=== PATIENT | female | born 1995 | race Caucasian/White ===

== ENCOUNTER 2016-05-06 22:34 | Emergency (ER) | payer OTHER ==
[2016-05-06] MEDS ORDERED: NORCO 5/325 MG PO ONE (22:51)
[2016-05-06] MEDS ORDERED: Vibramycin 100 MG PO ONE (22:51)
--- NOTE | 2016-05-06 22:57 | ERPHSYRPT ---
- History of Present Illness Time Seen by Provider: 05/06/16 22:52 Source: patient Exam Limitations: no limitations Patient Subjective Stated Complaint: PT STATES SHE HAS BEEN HAVING PAIN IN HER RT LOWER JAW SINCE THIS MORNING Triage Nursing Assessment: PT ALERT AND ORIENTED. ANSWERS QUESTIONS APPROP. PT AMBULATORY WITH STEADY GAIT NOTED. RESPIRATIONS NONLABORED WITH LUNGS CTA. NO SWELLING NOTED TO RT JAW. Physician History: 20 y/o female comes to the ER with complaints of right lower jaw pain since this morning. Pt describes the pain as sharp, constant, 6/10, with radiation up the jaw and not relieved by motrin. No fever or chills. Timing/Duration: gradual onset Severity: moderate ENT Location: dental Prearrival Treatment: over the counter meds Modifying Factors: Improves With: nothing Associated Symptoms: denies symptoms Allergies/Adverse Reactions: Penicillins Allergy (Verified 05/06/16 22:45) Home Medications: Norethindrone AC-Eth Estradiol [Microgestin 21 1-20 Tablet] 1 each PO DAILY [History] Hx Tetanus, Diphtheria Vaccination/Date Given: Yes Hx Influenza Vaccination/Date Given: No Hx Pneumococcal Vaccination/Date Given: No Immunizations Up to Date: Yes - Review of Systems Constitutional: No Fever, No Chills Eyes: No Symptoms Ears, Nose, & Throat: No Symptoms, Loose Teeth Respiratory: No Cough, No Dyspnea Cardiac: No Chest Pain, No Edema, No Syncope Abdominal/Gastrointestinal: No Abdominal Pain, No Nausea, No Vomiting, No Diarrhea Genitourinary Symptoms: No Dysuria Musculoskeletal: No Back Pain, No Neck Pain Skin: No Rash Neurological: No Dizziness, No Focal Weakness, No Sensory Changes Psychological: No Symptoms Endocrine: No Symptoms All Other Systems: Reviewed and Negative - Past Medical History Pertinent Past Medical History: No - Past Surgical History Past Surgical History: No - Social History Smoking Status: Former smoker Exposure to second hand smoke: Yes Drug Use: none Patient Lives Alone: Yes - Female History Hx Last Menstrual Period: ENDED 5 DAYS AGO - Nursing Vital Signs Nursing Vital Signs: Initial Vital Signs Temperature 98.2 F Temperature Source Oral Pulse Rate 67 Respiratory Rate 18 Blood Pressure [Right Arm] 140/96 Pain Intensity 7 - Physical Exam General Appearance: no apparent distress, alert Eye Exam: bilateral eye: PERRL, EOMI Nasal Exam: normal inspection Throat Exam: pharynx normal, maxillary swelling, moist mucus membranes, No tonsillar exudate Neck Exam: supple Cardiovascular/Respiratory Exam: normal breath sounds, regular rate/rhythm Abdominal Exam: non-tender, soft Neurologic Exam: alert, oriented x 3, sensation nml, No motor deficits Skin Exam: normal color, warm, dry SpO2: 99 Oxygen Delivery: Room Air - Course Nursing assessment & vital signs reviewed: Yes Ordered Tests: Medication Summary Generic Name Dose Route Start Last Admin Trade Name Freq PRN Reason Stop Dose Admin Acetaminophen/Hydrocodone Bitart 1 tab 05/06/16 22:51 Minter 5/325 Mg PO 05/06/16 22:52 STAT ONE - Progress Progress: unchanged Progress Note: 05/06/16 22:54 Pt will be started on doxycycline and norco for pain for tooth infection - Departure Time of Disposition: 22:55 Departure Disposition: Home Clinical Impression: Tooth infection Condition: Stable Critical Care Time: No Referrals: NINI UKO [Primary Care Provider] - Instructions: Tooth Decay Additional Instructions: Follow up with your dentist to have the infected tooth extracted. Prescriptions: Hydrocodone Bit/Acetaminophen [[place] 5-325 Tablet] 1 each PO Q6H PRN PRN #15 tablet PRN Reason: Pain Doxycycline Hyclate 100 mg PO BID #19 tablet
[2016-05-06] MEDS ORDERED: Vibramycin 100 MG ONE (23:06)
[2016-05-06] MEDS ORDERED: NORCO 5/325 MG ONE (23:06)
[2016-05-06 23:18] VITALS: BP 118/70; PULSE 71; O2SAT 100
== END 2016-05-06 23:18 | disposition home or self-care (01) ==
LOC: ED 22:34
DX: K04.7 Periapical abscess without sinus (principal)
CPT/HCPCS: 99282

== ENCOUNTER 2017-09-03 15:10 | Observation (INO) | payer OTHER ==
[2017-09-03 16:54] LABS: Appearance CLEAR (CLEAR)
[2017-09-03 16:55] LABS: Bilirubin NEGATIVE (NEGATIVE); Blood NEGATIVE Ery/ul (0-5); Glucose NEGATIVE (NEGATIVE); Ketones NEGATIVE (NEGATIVE); Leukocyte Esterase NEGATIVE (NEGATIVE); Nitrite NEGATIVE (NEGATIVE); Ph 6.5 (5-6); Protein,Urine Dip NEGATIVE (Negative); Specific Gravity 1.015 (1.005-1.025); Urobilinogen NORMAL mg/dL (0-1)
[2017-09-03 17:16] LABS: BASOPHIL % 0.2 % (0.0-0.4); Basophil (Absolute #) 0.02 (0-0.4); Eosinophil (Absolute #) 0.25 (0-0.5); Granulocytes % 77.8 % (36.0-66.0); Hematocrit 34.9 % (35-47); Hemoglobin 11.5 gm/dl (12.0-16.0); Lymphocyte (Absolute #) 1.87 (1.0-4.6); Lymphocytes % 15.3 % (24.0-44.0); Mean Cell Volume 81.7 fl (78-100); Mean Corpuscular Hemoglobin 26.9 pg (26-32); Monocyte (Absolute #) 0.58 (0.0-1.3); Monocytes % 4.7 % (0.0-12.0); Platelet Count 184 K/mm3 (150-450); Red Blood Count 4.27 M/mm3 (4.1-5.4); Red Cell Distribution Width 15.6 % (11.5-14.0); White Blood Count 12.2 K/mm3 (4.0-10.5)
[2017-09-03 17:45] LABS: ALBUMIN 3.4 g/dL (3.5-5.0); ALKALINE PHOSPHATASE 131 U/L (38-126); ANION GAP 12.4 MEQ/L (5-15); BLOOD UREA NITROGEN 5 mg/dL (7-17); CHLORIDE 106 mmol/L (98-107); Carbon Dioxide 22 mmol/L (22-30); Creatinine 1 0.48 mg/dL (0.52-1.04); Glucose 120 mg/dL (74-106); Potassium 3.9 mmol/L (3.5-5.1); SGOT/AST 17 U/L (14-36); SGPT/ALT 16 U/L (0-35); SODIUM 137 mmol/L (137-145); Total Protein 6.4 g/dL (6.3-8.2); Uric Acid 3.6 mg/dL (2.6-6.0)
[2017-09-03 17:55] VITALS: BP 130/69; PULSE 83
== END 2017-09-03 18:05 | disposition home or self-care (01) ==
LOC: UNDOADMOB 15:10 → OB 15:10 → UNDODISOB 18:05
PROVIDERS: ADMIT Family Medicine; ATTEND Family Medicine
DX: Z34.03 Encounter for supervision of normal first pregnancy, third trimester (principal)
CPT/HCPCS: 36415; 80053; 81002; 84550; 85025; G0378

== ENCOUNTER 2017-09-19 08:25 | Inpatient (IN) | payer OTHER ==
[2017-09-19 12:48] LABS: Amphetamine,Urine NEGATIVE (NEGATIVE); Barbiturate,Urine NEGATIVE (NEGATIVE); Benzodiazepine,Urine NEGATIVE (NEGATIVE); Cocaine,Urine NEGATIVE (NEGATIVE); Methadone,Urine NEGATIVE (NEGATIVE); Opiate,Urine NEGATIVE (NEGATIVE); PCP,Urine NEGATIVE (NEGATIVE); THC,Urine NEGATIVE (NEGATIVE)
[2017-09-19] MEDS ORDERED: TYLENOL 325 MG PO PRN (19:35)
[2017-09-20] MEDS ORDERED: BRETHINE 1 MG/ML SQ PRN (02:11)
[2017-09-20] MEDS ORDERED: Zofran 4 MG/2 ML VIAL IV PRN (02:21)
[2017-09-20] MEDS ORDERED: TYLENOL EXTRA STRENGTH 500 MG PO PRN (02:21)
[2017-09-20] MEDS ORDERED: PITOCIN 30 UNITS/ LR 500 ML 500 ML IV SCH ×2 (02:30)
[2017-09-20 02:35] LABS: BASOPHIL % 0.2 % (0.0-0.4); Basophil (Absolute #) 0.02 (0-0.4); Eosinophil % 1.5 % (0.00-5.0); Eosinophil (Absolute #) 0.19 (0-0.5); Granulocyte Absolute (ANC) 9.81 (1.4-6.9); Granulocytes % 76.1 % (36.0-66.0); Hematocrit 35.3 % (35-47); Hemoglobin 11.7 gm/dl (12.0-16.0); Lymphocyte (Absolute #) 2.07 (1.0-4.6); Lymphocytes % 16.1 % (24.0-44.0); Mean Cell Volume 82.1 fl (78-100); Mean Corpuscular Hemoglobin 27.2 pg (26-32); Mean Corpuscular Hgb Concent. 33.1 g/dl (32-36); Mean Platelet Volume 11.2 fl (6-9.5); Monocyte (Absolute #) 0.78 (0.0-1.3); Monocytes % 6.1 % (0.0-12.0); Platelet Count 174 K/mm3 (150-450); Red Cell Distribution Width 16.5 % (11.5-14.0); White Blood Count 12.9 K/mm3 (4.0-10.5)
[2017-09-20] MEDS: Lactated Ringers 1,000 ML IV SCH ×3 (02:43→22:30)
[2017-09-20] MEDS ORDERED: Zofran 4 MG/2 ML VIAL IV ONE (09:24)
[2017-09-20] MEDS ORDERED: Decadron 4 MG INJ IV ONE (09:24)
[2017-09-20] MEDS ORDERED: Ephedrine Sulfate 50 MG/ML IV ONE (09:24)
[2017-09-20] MEDS ORDERED: Naropin 0.5% 30 ML VIAL IJ ONE (09:24)
[2017-09-20] MEDS ORDERED: OB EPIDURAL NAROPIN/SUFENTANIL IN NACL EPIDURAL PRN (10:32)
[2017-09-20] MEDS ORDERED: Lactated Ringers 1,000 ML IV ONE ×2 (10:32→21:21)
[2017-09-20] MEDS ORDERED: HOLD NARCOTIC ANALGESICS AND SEDATIVES X24 HR MC PRN (20:05)
[2017-09-20] MEDS ORDERED: MORPHINE SULFATE 2 MG INJ IV PRN (20:05)
[2017-09-20] MEDS ORDERED: Narcan 0.4 MG/ML IV PRN (20:05)
[2017-09-20] MEDS ORDERED: Sodium Chloride 0.9% 10 ML FLUSH Syringe IJ PRN (20:05)
[2017-09-20] MEDS ORDERED: TUCKS TP PRN (20:05)
[2017-09-20] MEDS ORDERED: Mylicon 80MG PO PRN (20:05)
[2017-09-20] MEDS ORDERED: BENADRYL 50 MG/ML IV PRN (20:05)
[2017-09-20] MEDS ORDERED: CORTISONE 1% CREAM TP PRN (20:05)
[2017-09-20] MEDS ORDERED: LANSINOH 40 GM TOP PRN (20:05)
[2017-09-20] MEDS ORDERED: CLARITIN 10 MG PO PRN (20:05)
[2017-09-20] MEDS ORDERED: Nubain 10 MG/ML IV PRN (20:05)
[2017-09-20] MEDS ORDERED: DEMEROL 50 MG IV PRN (20:05)
[2017-09-20] MEDS ORDERED: Reglan 10 MG/2 ML IV SCH (20:15)
[2017-09-20] MEDS ORDERED: Pepcid 20 MG VIAL IV SCH (20:15)
[2017-09-20] MEDS ORDERED: BICITRA 30 ML CUP PO SCH (20:15)
[2017-09-20] MEDS ORDERED: CLINDAMYCIN-D5W 900 MG/50 ML*** 900 MG/50 ML BAG IV SCH (20:30)
[2017-09-20 20:50] LABS: Hematocrit 35.7 % (35-47); Hemoglobin 11.8 gm/dl (12.0-16.0); Mean Cell Volume 82.3 fl (78-100); Mean Corpuscular Hgb Concent. 33.1 g/dl (32-36); Mean Platelet Volume 11.1 fl (6-9.5); Platelet Count 190 K/mm3 (150-450); Red Blood Count 4.34 M/mm3 (4.1-5.4); Red Cell Distribution Width 16.4 % (11.5-14.0); White Blood Count 15.7 K/mm3 (4.0-10.5)
[2017-09-20 20:52] LABS: Mean Corpuscular Hemoglobin 27.1 pg (26-32)
[2017-09-20 21:18] LABS: INR 0.99 (0.8-3.0)
[2017-09-20 21:52] LABS: ABO TYPING A; Antibody Screen NEGATIVE (NEGATIVE); RH TYPING NEGATIVE
[2017-09-21] MEDS: Colace 100 MG PO SCH ×3 (02:56→20:54)
[2017-09-21] MEDS: PERCOCET TABLET 5/325MG PO PRN ×3 (05:01→14:58)
[2017-09-21 06:16] LABS: BASOPHIL % 0.1 % (0.0-0.4); Basophil (Absolute #) 0.01 (0-0.4); Eosinophil (Absolute #) 0 (0-0.5); Granulocyte Absolute (ANC) 17.48 (1.4-6.9); Granulocytes % 91.5 % (36.0-66.0); Hematocrit 32.5 % (35-47); Hemoglobin 10.7 gm/dl (12.0-16.0); Lymphocytes % 4.7 % (24.0-44.0); Mean Cell Volume 82.1 fl (78-100); Mean Corpuscular Hgb Concent. 32.9 g/dl (32-36); Mean Platelet Volume 10.7 fl (6-9.5); Monocyte (Absolute #) 0.71 (0.0-1.3); Monocytes % 3.7 % (0.0-12.0); Platelet Count 165 K/mm3 (150-450); Red Blood Count 3.96 M/mm3 (4.1-5.4); Red Cell Distribution Width 15.9 % (11.5-14.0); White Blood Count 19.1 K/mm3 (4.0-10.5)
--- NOTE | 2017-09-21 08:02 | OP ---
SURGERY DATE/TIME: 09/20/20172044 PREOPERATIVE DIAGNOSIS: Failure to progress in labor. POSTOPERATIVE DIAGNOSIS: Failure to progress in labor. PROCEDURE: Primary low transverse section. SURGEON: Kyaw Giang M.D. ANESTHESIA: Epidural by Vladimir Felix CRNA. ESTIMATED BLOOD LOSS: 400 cc. URINE OUTPUT: 50 cc clear straw-colored urine. IV FLUIDS: 1500 cc of Crystalloid. SPECIMEN: Placenta. DESCRIPTION OF PROCEDURE: After informed written consent was obtained the patient was taken to the OR. She had a previously placed laboring epidural dosed prior to coming back to the OR. She was prepped in the usual sterile fashion. After adequate level of anesthesia was assessed, a low transverse skin incision was made by knife and carried down through the subcutaneous fat to the level of the fascia. The fascia was nicked on both sides of the midline and extended in horizontal fashion using curved Black scissors. Superior free edge of the fascia was then grasped with Ross clamps and the underlying rectus muscles were dissected free. The same was repeated inferiorly. The peritoneal cavity was opened and a bladder flap was created and reflected over the lower uterine segment. Horizontal uterine incision was made by knife and carried down to the amniotic membranes which were carefully artificially ruptured. A viable male infant with significant caput and what appeared to be macrosomia were delivered from the vertex presentation with strong cry. Bulb suction was used for oropharynx and nares. The cord was clamped and cut. Then Dr. Artis robed/scrubbed to attend to the baby. The placenta was manually removed from the uterus and the uterus was exteriorized. The uterine cavity was sponge curetted with lap sponge. The uterine incision is then closed with #1 chromic in a running locked fashion. Two layers were used to provide good closure and good hemostasis. The posterior cul-de-sac was wiped free of blood and clot and the uterus was returned to the peritoneal cavity. Lateral gutters were wiped free of blood and clot. Again, the uterine incision was inspected and noted to be hemostatic. Next, the fascia was closed with 0 Vicryl in a running fashion. Good closure and good hemostasis were achieved. The subcutaneous fat was then irrigated with warm, sterile saline and any areas of bleeding were cauterized with electrocautery. Finally the skin layer was then closed with 4-0 undyed Vicryl in a running subcuticular fashion. Steri-Strips and occlusive dressing were placed over the incision and the patient was transferred to the recovery room in excellent condition.
[2017-09-21 08:32] VITALS: O2SAT 98
[2017-09-21] MEDS: MOTRIN 400 MG PO PRN ×3 (08:40→23:57)
[2017-09-21] MEDS ORDERED: FERREX 150 PO SCH (10:00)
[2017-09-21] MEDS: NORCO 5/325 MG PO PRN (21:00)
[2017-09-22] MEDS: NORCO 5/325 MG PO PRN ×2 (02:11→22:40)
[2017-09-22 09:28] LABS: BASOPHIL % 0.2 % (0.0-0.4); Basophil (Absolute #) 0.02 (0-0.4); Eosinophil % 1.3 % (0.00-5.0); Eosinophil (Absolute #) 0.14 (0-0.5); Granulocyte Absolute (ANC) 8.63 (1.4-6.9); Granulocytes % 78.6 % (36.0-66.0); Lymphocyte (Absolute #) 1.56 (1.0-4.6); Lymphocytes % 14.2 % (24.0-44.0); Mean Cell Volume 84.7 fl (78-100); Mean Corpuscular Hemoglobin 27.3 pg (26-32); Mean Corpuscular Hgb Concent. 32.3 g/dl (32-36); Mean Platelet Volume 10.9 fl (6-9.5); Monocyte (Absolute #) 0.62 (0.0-1.3); Monocytes % 5.7 % (0.0-12.0); Platelet Count 145 K/mm3 (150-450); Red Blood Count 3.66 M/mm3 (4.1-5.4); Red Cell Distribution Width 16.8 % (11.5-14.0)
[2017-09-22] MEDS: Colace 100 MG PO SCH ×2 (09:58→19:30)
[2017-09-22] MEDS: MOTRIN 400 MG PO PRN (09:58)
--- NOTE | 2017-09-22 10:00 | PCM.DS ---
Discharge Summary Date of Admission: 09/20/17 08:25 Admitting Physician: LARRY GOEL Consults: Consults on Case 09/20/17 20:06 Notify Anesthesia Provider Notify Physician OF ADMISSION Primary Care Provider: LARRY GOEL Allergies Allergies Penicillins Allergy (Verified 09/19/17 12:07) Hospital Summary - Hospital Course Hospital Course: Pt came in for induction of labor at 39w 1d due to being at term and concern for macrosomia. Balloon catheter was placed in the uterus and 12h later she was started on pitocin. THroughout that morning she had scattered late and variable decelerations but good variability. Late in the morning the pitocin was turned off and she did progress to 7 cm but remained static for 4 hours. At that point it was decided to go to . She delivered a 9 lb male uneventfully by with Dr. Giang (for full details, see his operative note). She has recovered well. Did have elevated WBC count to 19,000 the day after delivery; this morning it is 11,000. Her platelets this morning are 145 but will check those again in 3 days (on Monday). Home on [place] . - Vitals & Intake/Output Vital Signs: Vital Signs Temperature 97.6 F 09/22/17 03:30 Pulse Rate 96 H 09/22/17 03:30 Respiratory Rate 18 09/22/17 03:30 Blood Pressure 123/60 09/22/17 03:30 O2 Sat by Pulse Oximetry 98 09/21/17 08:00 Intake & Output: Intake & Output 09/19/17 09/20/17 09/21/17 09/22/17 11:59 11:59 11:59 11:59 Output Total 1600 Balance -1600 Weight 108.819 kg 108.819 kg - Lab Result Diagrams: 09/22/17 09:22 Lab Results-Last 24 Hrs: Lab Results-Last 24 Hours 09/22/17 Range/Units 09:22 WBC 11.0 H (4.0-10.5) K/mm3 RBC 3.66 L (4.1-5.4) M/mm3 Hgb 10.0 L (12.0-16.0) gm/dl Hct 31.0 L (35-47) % MCV 84.7 (78-100) fl MCH 27.3 (26-32) pg MCHC 32.3 (32-36) g/dl RDW 16.8 H (11.5-14.0) % Plt Count 145 L (150-450) K/mm3 MPV 10.9 H (6-9.5) fl Gran % 78.6 H (36.0-66.0) % Eos # (Auto) 0.14 (0-0.5) Absolute Lymphs (auto) 1.56 (1.0-4.6) Absolute Monos (auto) 0.62 (0.0-1.3) Lymphocytes % 14.2 L (24.0-44.0) % Monocytes % 5.7 (0.0-12.0) % Eosinophils % 1.3 (0.00-5.0) % Basophils % 0.2 (0.0-0.4) % Absolute Granulocytes 8.63 H (1.4-6.9) Basophils # 0.02 (0-0.4) Discharge Exam General Appearance: no apparent distress, alert Neurologic Exam: oriented x 3, cooperative Skin Exam: normal color, warm, dry, No rash Ears, Nose, Throat Exam: moist mucous membranes Neck Exam: normal inspection Respiratory Exam: normal breath sounds, lungs clear, No crackles/rales, No rhonchi, No wheezing Cardiovascular Exam: regular rate/rhythm, normal heart sounds, murmur Gastrointestinal/Abdomen Exam: soft, other (fundus firm under umbilicus; mildly ttp. wound c/d/i) Extremity Exam: normal inspection, pedal edema (trace bilat), No swelling Back Exam: normal inspection, No rash Final Diagnosis/Problem List - Final Discharge Diagnosis/Problem (1) delivery delivered Current Visit: Yes Status: Acute Assessment & Plan: Doing great, POD #2, home tonight at 48 hours. Her platelets are low, but BP have been great. (2) Thrombocytopenia Current Visit: Yes Status: Acute Assessment & Plan: recheck CBC in 3d (on Monday) - Discharge Disposition: Home, Self-Care Condition: Good Prescriptions: New Docusate Sodium 100 mg [Colace 100 MG] 100 mg PO BID PRN #30 capsule PRN Reason: Constipation Ibuprofen 800 mg PO TID PRN PRN #35 tablet PRN Reason: Pain Hydrocodone Bit/Acetaminophen [[place] 5-325 Tablet] 1 each PO Q4H PRN #30 tablet MDD 6 PRN Reason: Severe Pain Continue Vits W-Ca,Fe,FA(<1Mg) [] 1 tablet PO DAILY Follow up with: LARRY GOEL [Primary Care Provider] - 1 Week
[2017-09-22 20:30] VITALS: BP 119/60; PULSE 110
== END 2017-09-22 22:48 | disposition home or self-care (01) | DRG 766 ==
LOC: OB 08:25 → OBSVTOIN 09-20 08:25
PROVIDERS: ADMIT Family Medicine; ATTEND Family Medicine
PROC: 10D00Z1 Extraction of Products of Conception, Low, Open Approach (ICD-10-PCS; principal; 2017-09-20)
DX: O61.0 Failed medical induction of labor (principal); Z3A.39 39 weeks gestation of pregnancy; Z37.0 Single live birth; D47.3 Essential (hemorrhagic) thrombocythemia
CPT/HCPCS: 36415; 64488; 76937; 76942; 80307; 85025; 85027; 85610; 85730; 86850; 86900; 86901; 88307; 94799; G0378; J1100; J2405; J2590; J2795; L0625; A9270-GY

== ENCOUNTER 2021-06-16 17:50 | Observation (INO) | payer OTHER ==
[2021-06-16] MEDS ORDERED: Lactated Ringers 1,000 ML IV ONE ×2 (18:00→18:22)
[2021-06-16 18:37] LABS: Appearance SLIGHTLY CLOUDY (CLEAR); Bacteria RARE /HPF (NEGATIVE); Bilirubin SMALL (NEGATIVE); Blood NEGATIVE Ery/ul (0-5); Epithelial Cells RARE /HPF (FEW); Glucose NEGATIVE (NEGATIVE); Ketones SMALL (NEGATIVE); Leukocyte Esterase NEGATIVE (NEGATIVE); Mucus SLIGHT /HPF (NEGATIVE); Nitrite NEGATIVE (NEGATIVE); Protein,Urine Dip 100 (Negative); RBC 0-2 /HPF (0-2); Specific Gravity 1.024 (1.005-1.025); Urobilinogen 2 mg/dL (0-1)
[2021-06-16] MEDS ORDERED: Zofran 4 MG/2 ML VIAL IV ONE (20:19)
[2021-06-16] MEDS ORDERED: Zofran 4 MG/2 ML VIAL ONE (20:22)
[2021-06-16 20:23] LABS: Hematocrit 38.4 % (35-47); Hemoglobin 12.3 gm/dl (12.0-16.0); Mean Corpuscular Hemoglobin 26.9 pg (26-32); Mean Platelet Volume 10.5 fl (7.5-11.0); Platelet Count 170 K/mm3 (150-450); Red Blood Count 4.57 M/mm3 (4.1-5.4); Red Cell Distribution Width 16.4 % (11.5-14.0); White Blood Count 11.9 K/mm3 (4.0-10.5)
[2021-06-16 20:35] LABS: ALBUMIN 3.5 g/dL (3.5-5.0); ALKALINE PHOSPHATASE 154 U/L (38-126); ANION GAP 13.4 MEQ/L (5-15); BLOOD UREA NITROGEN 6 mg/dL (7-17); CHLORIDE 104 mmol/L (98-107); Calcium 8.6 mg/dL (8.4-10.2); Carbon Dioxide 19 mmol/L (22-30); Creatinine 1 0.39 mg/dL (0.52-1.04); EST GLOMERULAR FILTRATION RATE > 60.0 ML/MIN; Glucose 71 mg/dL (74-106); Potassium 3.8 mmol/L (3.5-5.1); SGOT/AST 17 U/L (14-36); SGPT/ALT 10 U/L (0-35); SODIUM 134 mmol/L (137-145); Total Protein 6.3 g/dL (6.3-8.2)
[2021-06-16 20:46] LABS: COVID AG -BINAX NOW RAPID TEST NEGATIVE (NEGATIVE)
[2021-06-16 20:47] LABS: INFLUENZA A NEGATIVE (NEGATIVE); INFLUENZA B NEGATIVE (NEGATIVE)
[2021-06-16 22:17] VITALS: BP 119/70; PULSE 104
== END 2021-06-16 22:00 | disposition home or self-care (01) ==
LOC: MED SURG 17:50
PROVIDERS: ADMIT Obstetrics & Gynecology; ATTEND Obstetrics & Gynecology
DX: Z34.83 Encounter for supervision of other normal pregnancy, third trimester (principal); Z3A.38 38 weeks gestation of pregnancy
CPT/HCPCS: 36415; 80053; 81001; 84550; 85027; 87400; 99000; G0378; J2405

== ENCOUNTER 2021-06-21 16:34 | Observation (INO) | payer OTHER ==
[2021-06-21 17:06] VITALS: BP 124/68; PULSE 94
== END 2021-06-21 17:35 | disposition home or self-care (01) ==
LOC: OB 16:34
PROVIDERS: ADMIT Family Medicine; ATTEND Obstetrics & Gynecology
DX: Z34.83 Encounter for supervision of other normal pregnancy, third trimester (principal); Z3A.39 39 weeks gestation of pregnancy
CPT/HCPCS: 59025; G0378

== ENCOUNTER 2021-06-23 04:14 | Inpatient (IN) | payer OTHER ==
[~2021-06-23 04:14] MED LIST: Anucort-HC SUPPOSITORY PR PRN; CORTISONE 1% CREAM TP PRN; Colace 100 MG PO SCH; Dermoplast Spray TP PRN; Dulcolax 10 MG SUPP PR PRN; LANSINOH 40 GM TOP PRN; MOTRIN 400 MG PO PRN; Mylicon 80MG PO PRN; TUCKS TP PRN
[2021-06-23] MEDS ORDERED: Lactated Ringers 1,000 ML IV ONE ×2 (05:00→06:00)
[2021-06-23] MEDS ORDERED: CLINDAMYCIN-D5W 900 MG/50 ML*** 900 MG/50 ML BAG IV SCH ×2 (05:00→07:00)
[2021-06-23] MEDS ORDERED: PERCOCET TABLET 5/325MG PO PRN ×2 (05:00→10:00)
[2021-06-23] MEDS ORDERED: TYLENOL EXTRA STRENGTH 500 MG PO PRN (05:00)
[2021-06-23] MEDS ORDERED: Nubain 10 MG/ML IV PRN ×2 (05:00→10:00)
[2021-06-23] MEDS ORDERED: Reglan 10 MG/2 ML IV SCH ×2 (05:00→07:00)
[2021-06-23] MEDS ORDERED: DEMEROL 50 MG IV PRN ×2 (05:00→10:00)
[2021-06-23] MEDS ORDERED: BENADRYL 50 MG/ML IV PRN ×2 (05:00→10:00)
[2021-06-23] MEDS ORDERED: Dextrose 5%-Lr IV Solution 1000 ML 1,000 ML IV SCH ×2 (05:00→10:00)
[2021-06-23] MEDS ORDERED: Lactated Ringers 1,000 ML IV SCH ×2 (05:00→07:00)
[2021-06-23] MEDS ORDERED: CLARITIN 10 MG PO PRN ×2 (05:00→10:00)
[2021-06-23] MEDS ORDERED: Narcan 0.4 MG/ML IV PRN ×2 (05:00→10:00)
[2021-06-23] MEDS ORDERED: MORPHINE SULFATE 2 MG INJ IV PRN ×2 (05:00→10:00)
[2021-06-23] MEDS ORDERED: Sodium Chloride 0.9% 10 ML FLUSH Syringe IJ PRN (05:00)
[2021-06-23] MEDS ORDERED: Zofran 4 MG/2 ML VIAL IV PRN ×2 (05:00→10:00)
[2021-06-23] MEDS ORDERED: SOD CITRATE-CITRIC ACID SOLN PO SCH ×2 (05:00→07:00)
[2021-06-23] MEDS ORDERED: HOLD NARCOTIC ANALGESICS AND SEDATIVES X24 HR MC PRN ×2 (05:00→08:00)
[2021-06-23] MEDS ORDERED: Pepcid 20 MG VIAL IV SCH ×2 (05:00→07:00)
[2021-06-23 05:14] LABS: Hematocrit 34.6 % (35-47); Hemoglobin 11.3 gm/dl (12.0-16.0); Mean Cell Volume 83.6 fl (78-100); Mean Corpuscular Hemoglobin 27.3 pg (26-32); Mean Corpuscular Hgb Concent. 32.7 g/dl (32-36); Mean Platelet Volume 10.3 fl (7.5-11.0); Platelet Count 180 K/mm3 (150-450); Red Blood Count 4.14 M/mm3 (4.1-5.4); Red Cell Distribution Width 15.8 % (11.5-14.0); White Blood Count 11.7 K/mm3 (4.0-10.5)
[2021-06-23 05:30] LABS: INR 0.96 (0.8-3.0); PROTIME 11.3 SECONDS (9.4-12.5)
[2021-06-23 05:32] LABS: PTT 29.3 SECONDS (25.1-36.5)
[2021-06-23 05:35] LABS: Amphetamine,Urine NEGATIVE (NEGATIVE); Barbiturate,Urine NEGATIVE (NEGATIVE); Benzodiazepine,Urine NEGATIVE (NEGATIVE); Cocaine,Urine NEGATIVE (NEGATIVE); Methadone,Urine NEGATIVE (NEGATIVE); Opiate,Urine NEGATIVE (NEGATIVE); PCP,Urine NEGATIVE (NEGATIVE); THC,Urine NEGATIVE (NEGATIVE)
[2021-06-23 05:59] LABS: Appearance CLEAR (CLEAR); Bilirubin NEGATIVE (NEGATIVE); Blood NEGATIVE Ery/ul (0-5); Glucose NEGATIVE (NEGATIVE); Ketones NEGATIVE (NEGATIVE); Leukocyte Esterase NEGATIVE (NEGATIVE); Mucus SLIGHT /HPF (NEGATIVE); Nitrite NEGATIVE (NEGATIVE); Protein,Urine Dip NEGATIVE (Negative); Specific Gravity 1.014 (1.005-1.025); Urobilinogen NEGATIVE mg/dL (0-1)
[2021-06-23] MEDS ORDERED: Pitocin 10 UNITS/ML ONE (06:33)
[2021-06-23] MEDS ORDERED: PHENYLEPHRINE HCL ONE (06:42)
[2021-06-23] MEDS ORDERED: Astramorph-Pf 5 MG/10 ML ONE (06:58)
[2021-06-23] MEDS ORDERED: Zofran 4 MG/2 ML VIAL ONE (09:21)
[2021-06-23] MEDS ORDERED: Decadron 4 MG INJ ONE ×2 (09:39→09:49)
[2021-06-23] MEDS ORDERED: Marcaine 0.5%/Epinephrine 10 ML ONE (09:39)
[2021-06-23] MEDS ORDERED: Ephedrine Sulfate 50 MG/ML ONE (09:42)
[2021-06-23] MEDS ORDERED: TORAdol 30 mg Injection ONE (09:42)
[2021-06-23] MEDS ORDERED: Anucort-HC SUPPOSITORY PR PRN (10:00)
[2021-06-23] MEDS ORDERED: LANSINOH 40 GM TOP PRN (10:00)
[2021-06-23] MEDS ORDERED: FERREX 150 PO SCH (10:00)
[2021-06-23] MEDS ORDERED: CORTISONE 1% CREAM TP PRN (10:00)
[2021-06-23] MEDS ORDERED: Dermoplast Spray TP PRN (10:00)
[2021-06-23] MEDS ORDERED: TUCKS TP PRN (10:00)
[2021-06-23] MEDS ORDERED: Dulcolax 10 MG SUPP PR PRN (10:00)
[2021-06-23] MEDS ORDERED: Rhogam Plus 300 MCG IM ONE (12:00)
[2021-06-23] MEDS ORDERED: Adacel Vial IM ONE (12:00)
[2021-06-23] MEDS: Dextrose 5%-Lr IV Solution 1000 ML 1,000 ML IV SCH ×2 (13:33→21:29)
[2021-06-23 14:02] LABS: Appearance CLEAR (CLEAR); Bilirubin NEGATIVE (NEGATIVE); Blood NEGATIVE Ery/ul (0-5); Glucose NEGATIVE (NEGATIVE); Ketones NEGATIVE (NEGATIVE); Leukocyte Esterase NEGATIVE (NEGATIVE); Mucus SLIGHT /HPF (NEGATIVE); Nitrite NEGATIVE (NEGATIVE); Protein,Urine Dip NEGATIVE (Negative); Specific Gravity 1.016 (1.005-1.025); Urobilinogen NEGATIVE mg/dL (0-1); WBC 0-2 /HPF (0-5)
[2021-06-23] MEDS: CLINDAMYCIN-D5W 900 MG/50 ML*** 900 MG/50 ML BAG IV SCH ×2 (15:25→23:08)
[2021-06-23] MEDS: Colace 100 MG PO SCH (21:28)
[2021-06-23] MEDS: Sodium Chloride 0.9% 10 ML FLUSH Syringe IV SCH (21:29)
[2021-06-24] MEDS: MOTRIN 400 MG PO PRN ×3 (01:13→21:05)
[2021-06-24] MEDS: Mylicon 80MG PO PRN (01:17)
[2021-06-24] MEDS: Dextrose 5%-Lr IV Solution 1000 ML 1,000 ML IV SCH (02:12)
[2021-06-24 05:18] LABS: Absolute Neutrophil Ct (ANC) 10.08 (1.4-6.9); Basophil (Absolute #) 0.02 (0-0.4); Eosinophil % 0.4 % (0.00-5.0); Eosinophil (Absolute #) 0.06 (0-0.5); Hematocrit 31.7 % (35-47); Hemoglobin 10.2 gm/dl (12.0-16.0); Lymphocytes % 18.6 % (24.0-44.0); Mean Cell Volume 85.4 fl (78-100); Mean Corpuscular Hemoglobin 27.5 pg (26-32); Mean Corpuscular Hgb Concent. 32.2 g/dl (32-36); Mean Platelet Volume 10.7 fl (7.5-11.0); Monocyte (Absolute #) 0.81 (0.0-1.3); Neutrophil % 74.9 % (36.0-66.0); Platelet Count 194 K/mm3 (150-450); Red Blood Count 3.71 M/mm3 (4.1-5.4); Red Cell Distribution Width 15.9 % (11.5-14.0); White Blood Count 13.5 K/mm3 (4.0-10.5)
[2021-06-24] MEDS ORDERED: NORCO 5/325 MG PO PRN (07:00)
[2021-06-24] MEDS ORDERED: NON-FORMULARY ITEM (Omeprazole [Omeprazole] 20 MG Tab.Rap.Dr) PO PRN (07:32)
[2021-06-24] MEDS ORDERED: Protonix 40MG Tablet PO PRN (07:34)
--- NOTE | 2021-06-24 07:49 | OP ---
SURGERY DATE/TIME: 06/23/2021 0906 PREOPERATIVE DIAGNOSIS: Intrauterine at 39 weeks and 2 days gestation with previous section, declined trial of labor. POSTOPERATIVE DIAGNOSIS: Intrauterine at 39 weeks and 2 days gestation with previous section, declined trial of labor, with nuchal cord x1. PROCEDURE: Repeat section, low flap transverse uterine incision, Pfannenstiel skin incision. SURGEON: Carlos Alberto Cee D.O. WELDER TECH: Amelie Crenshaw, thermoplastic technician. ANESTHESIA: Spinal. ESTIMATED BLOOD LOSS: 500 cc. COMPLICATIONS: None. INDICATIONS: The risks, benefits, indications and alternatives of the procedure were reviewed with the patient prior to procedure. The patient understood the risk of infection, bleeding, bowel injury, bladder injury, ureteral injury, pelvic infection, thromboembolic disorder associated with the surgery however desires to have this surgery as a possible means to alleviate her current medical condition. DESCRIPTION OF PROCEDURE AND FINDINGS: At this point the patient is taken to the operating room where her spinal anesthesia was found to be adequate. She was then prepared and draped in normal sterile fashion in the dorsal supine position with a leftward tilt. A Pfannenstiel skin incision is made with a scalpel and carried through to the underlying layer of the fascia with a Bovie. The fascia was then incised in the midline and the incision extended laterally with Black scissors. The superior aspect of the fascial incision was then grasped Ross clamps elevated and the underlying rectus muscles dissected off bluntly. Attention is then turned to the inferior aspect of this incision which in a similar fashion was grasped, tented up with Ross clamps and the rectus muscles dissected off bluntly. The rectus muscles were then in the midline and the peritoneum identified, tented up and entered sharply with Metzenbaum scissors. The peritoneal incision was then extended superiorly and inferiorly with good visualization of the bladder. The bladder blade was then inserted and the vesicouterine peritoneum identified, grasped with a pickup and entered sharply with Metzenbaum scissors. This incision was then extended laterally and the bladder flap created digitally. The bladder blade was then re-inserted and the lower uterine segment incised in transverse fashion with a scalpel. The uterine incision was then extended laterally with bandage scissors. The bladder blade was then removed and the infants head was delivered atraumatically and was noted to have nuchal cord x1 which was reduced. The nose and mouth were suctioned with bulb suction and the cord clamped and cut. The infant was then handed off to the awaiting nurses. The placenta was then removed manually. The uterus exteriorized and cleared of all clots and debris. The uterine incision was repaired with 1-0 chromic in a running locked fashion. A second layer of the same suture was used to obtain excellent hemostasis. At this point the uterus is then returned to the abdomen. The gutters were cleared of all clots and the peritoneal muscle closed in interrupted fashion using 2-0 chromic suture. The fascia was re-approximated with 0 Vicryl in running fashion. The subcutaneous layer was closed with 3-0 suture and the skin was closed with absorbable kaykay called INSORB. The patient tolerated the procedure well. Sponge, lap, needle and instrument counts were correct x2. The patient was then taken to the recovery room in stable condition. The patient delivered a live baby girl at 0934 hours. The weight of the baby was 8 pounds 9 ounce. 's were 8 at 1 minute and 9 at 5 minutes.
[2021-06-24] MEDS ORDERED: ENOXAPARIN SODIUM SQ SCH (08:00)
--- NOTE | 2021-06-24 08:13 | PCM.NOTE ---
Date and Time: 06/24/21810 Subjective Assessment: pod 1 sp csection pt resting in bed and doing well ambulating and tolerating diet. vss afebrile abd; soft incision c/d/intact uterus; firm lochia; mild hgb; 10 a/p sp csection pod 1 anticipate discharge tomorrow OBJECTIVE DATA Vital Signs: Vital Signs - 24 hr Temp Pulse Resp BP BP Pulse Ox 06/24/21 04:00 98 F 82 19 99/52 95 06/24/21 00:00 98.7 F 88 17 98/55 98 06/23/21 20:00 98.3 F 72 19 100/57 96 06/23/21 18:00 98.0 F 06/23/21 14:00 97.6 F 89 18 107/49 97 06/23/21 13:00 97.6 F 97 H 18 99/62 97 06/23/21 12:30 97.6 F 93 H 18 97/54 96 06/23/21 12:00 97.6 F 84 18 108/55 96 06/23/21 11:45 97.6 F 84 18 108/55 96 06/23/21 11:30 97.6 F 90 18 110/59 96 06/23/21 11:15 97.5 F 86 18 107/56 98 06/23/21 10:45 97.5 F 81 18 112/60 112/60 98 Pain Assessment - Last Documented Pain Intensity [Anterior] 1 Pain Intensity 1 Pain Scale Used FLACC Intake and Output: Intake & Output 06/21/21 06/22/21 06/23/21 06/24/21 11:59 11:59 11:59 11:59 Intake Total 1975 Output Total 3550 Balance -1575 Weight 112.037 kg Lab Results: Lab Results-Last 24 Hours 06/23/21 06/24/21 Range/Units 09:24 05:00 WBC 13.5 H (4.0-10.5) K/mm3 RBC 3.71 L (4.1-5.4) M/mm3 Hgb 10.2 L (12.0-16.0) gm/dl Hct 31.7 L (35-47) % MCV 85.4 (78-100) fl MCH 27.5 (26-32) pg MCHC 32.2 (32-36) g/dl RDW 15.9 H (11.5-14.0) % Plt Count 194 (150-450) K/mm3 MPV 10.7 (7.5-11.0) fl Gran % 74.9 H (36.0-66.0) % Eos # (Auto) 0.06 (0-0.5) Absolute Lymphs (auto) 2.50 (1.0-4.6) Absolute Monos (auto) 0.81 (0.0-1.3) Lymphocytes % 18.6 L (24.0-44.0) % Monocytes % 6.0 (0.0-12.0) % Eosinophils % 0.4 (0.00-5.0) % Basophils % 0.1 (0.0-0.4) % Absolute Granulocytes 10.08 H (1.4-6.9) Basophils # 0.02 (0-0.4) Urine Color YELLOW (YELLOW) Urine Appearance CLEAR (CLEAR) Urine pH 7.0 (5-6) Ur Specific [place] 1.016 (1.005-1.025) Urine Protein NEGATIVE (Negative) Urine Ketones NEGATIVE (NEGATIVE) Urine Blood NEGATIVE (0-5) Marvin/ul Urine Nitrite NEGATIVE (NEGATIVE) Urine Bilirubin NEGATIVE (NEGATIVE) Urine Urobilinogen NEGATIVE (0-1) mg/dL Ur Leukocyte Esterase NEGATIVE (NEGATIVE) Urine WBC (Auto) 0-2 (0-5) /HPF Urine RBC (Auto) NONE (0-2) /HPF U Epithel Cells (Auto) NONE (FEW) /HPF Urine Bacteria (Auto) NONE (NEGATIVE) /HPF Urine Mucus (Auto) SLIGHT (NEGATIVE) /HPF Urine Glucose NEGATIVE (NEGATIVE) mg/dL Multi-Disciplinary Progress Notes: Multi-Disciplinary Progress Notes 06/23/21 10:07 Respiratory Note by Lyssa Koenig RT PRESENT DURING DELIVERY. NO PROBLEMS NOTED. Initialized on 06/23/21 10:07 - END OF NOTE Assessment/Plan (1) Status post repeat low transverse section Current Visit: Yes Status: Acute Code(s): Z98.891 - HISTORY OF UTERINE SCAR FROM PREVIOUS SURGERY
[2021-06-24] MEDS: Glucophage 500 MG PO SCH (08:14)
[2021-06-24] MEDS: Colace 100 MG PO SCH ×2 (09:53→21:05)
[2021-06-24] MEDS: THERAGRAN MULTIVITAMIN PO SCH (09:53)
[2021-06-24] MEDS: FERREX 150 PO SCH (09:53)
[2021-06-24] MEDS ORDERED: [UNRECOGNIZED DRUG - REMARK] PO SCH (10:00)
[2021-06-24] MEDS ORDERED: Adacel Vial IM ONE (10:00)
[2021-06-24] MEDS ORDERED: Ambien 10 MG PO PRN ×2 (11:24→22:00)
[2021-06-24 14:48] LABS: HBsAg Screen Negative (Negative)
[2021-06-24] MEDS: Sodium Chloride 0.9% 10 ML FLUSH Syringe IV SCH (20:04)
[2021-06-24] MEDS ORDERED: Rhogam Plus 300 MCG IM ONE (22:00)
[2021-06-25] MEDS: NORCO 5/325 MG PO PRN ×3 (00:03→10:12)
[2021-06-25] MEDS: Mylicon 80MG PO PRN (00:03)
[2021-06-25] MEDS: MOTRIN 400 MG PO PRN ×2 (04:05→11:33)
--- NOTE | 2021-06-25 07:40 | PCM.NOTE ---
Date and Time: 06/25/21 0739 Subjective Assessment: pod 2 pt resting in bed and doing well vss afebrile abd; incision c/d/intact uterus; firm lochia; mild a/p sp csection pod 2 dc home today fu office 2 wks OBJECTIVE DATA Vital Signs: Vital Signs - 24 hr Temp Pulse Resp BP Pulse Ox 06/25/21 02:00 97.9 F 82 17 108/57 96 06/24/21 20:30 97.8 F 82 19 100/56 97 06/24/21 14:00 98.1 F 77 20 115/67 99 06/24/21 08:00 97.7 F 69 20 99/55 98 Pain Assessment - Last Documented Pain Intensity [Anterior] 3 Pain Intensity 1 Pain Scale Used 0-10 Pain Scale Intake and Output: Intake & Output 06/22/21 06/23/21 06/24/21 06/25/21 11:59 11:59 11:59 11:59 Intake Total 1975 2300 Output Total 3550 Balance -1575 2300 Weight 112.037 kg Lab Results: Lab Results-Last 24 Hours 06/23/21 Range/Units 05:00 Hep Bs Antigen Negative (Negative) Assessment/Plan (1) Status post repeat low transverse section Current Visit: Yes Status: Acute Code(s): Z98.891 - HISTORY OF UTERINE SCAR FROM PREVIOUS SURGERY
--- NOTE | 2021-06-25 07:48 | PCM.DS ---
Discharge Summary Date of Admission: 06/23/21 04:14 Admitting Physician: ISMAEL WHITT DO Consults: Consults on Case 06/23/21 08:00 Notify Anesthesia Provider ROUTINE Notify Physician OF ADMISSION 06/23/21 18:02 Navigation ONCE Primary Care Provider: LARRY KNUTSON Allergies Allergies Penicillins Allergy (Verified 06/23/21 04:47) as a child,unknown reaction Hospital Summary - Hospital Course Hospital Course: pt admitted on june 23 for scheduled repeat csection and underwent procedure without complication. pt delivered live baby girl via csection and underwent procedure without complication. during postop period did well and was able to ambulate and tolerate diet. incision c/d/intact and at this time stable for discharge. all questions answered to her satisfaction. pt will go home on [facility]. - Vitals & Intake/Output Vital Signs: Vital Signs Temperature 97.9 F 06/25/21 02:00 Pulse Rate 82 06/25/21 02:00 Respiratory Rate 17 06/25/21 02:00 Blood Pressure 108/57 06/25/21 02:00 O2 Sat by Pulse Oximetry 96 06/25/21 02:00 Intake & Output: Intake & Output 06/22/21 06/23/21 06/24/21 06/25/21 11:59 11:59 11:59 11:59 Intake Total 1975 2300 Output Total 3550 Balance -1575 2300 Weight 112.037 kg - Lab Result Diagrams: 06/24/21 05:00 Lab Results-Last 24 Hrs: Lab Results-Last 24 Hours 06/23/21 Range/Units 05:00 Hep Bs Antigen Negative (Negative) Micro Results-Entire Visit: Microbiology 06/23/21 09:24 Urine Culture - Final Urine, Catheterized NO GROWTH 06/23/21 04:25 Urine Culture - Final Catherized MIXED JOSE MANUEL; 3 OR MORE TYPES. NO PREDOMINANT ORGANISM. NO FURTHER WORKUP. PLEASE RESUBMIT IF CLINICALLY INDICATED. - Procedures and Test Procedures and Tests throughout Hospitalization: Therapy Orders & Screens 06/23/21 10:04 Standby ROUTINE Comment: Diagnosis: IUP Final Diagnosis/Problem List - Final Discharge Diagnosis/Problem (1) Status post repeat low transverse section Current Visit: Yes Status: Acute Code(s): Z98.891 - HISTORY OF UTERINE SCAR FROM PREVIOUS SURGERY - Discharge Disposition: Home, Self-Care Condition: Stable Prescriptions: New Hydrocodone/Acetaminophen [Hydrocodone-Acetamin 5-325 mg] 1 each PO Q6HPRN PRN #20 tablet MDD 4 PRN Reason: Moderate To Severe Pain No Action Pnv No.95/Ferrous Fum/Folic AC [ Caplet] 1 each PO DAILY Metformin HCl 500 mg [Glucophage 500 MG] 500 mg PO DAILY Omeprazole 20 mg PO DAILY PRN PRN Reason: Gas Follow up with: LARRY KNUTSON [Primary Care Provider] - ISMAEL WHITT DO [ACTIVE STAFF] - 2 weeks (keep incision clean and dry )
[2021-06-25 09:09] VITALS: BP 104/59; PULSE 85; O2SAT 97
[2021-06-25] MEDS: Glucophage 500 MG PO SCH (09:11)
[2021-06-25] MEDS: Colace 100 MG PO SCH (10:12)
[2021-06-25] MEDS: THERAGRAN MULTIVITAMIN PO SCH (10:13)
[2021-06-25] MEDS: FERREX 150 PO SCH (10:13)
== END 2021-06-25 12:54 | disposition home or self-care (01) | DRG 788 ==
LOC: OB 04:14
PROVIDERS: ADMIT Obstetrics & Gynecology; ATTEND Obstetrics & Gynecology
PROC: 10D00Z1 Extraction of Products of Conception, Low, Open Approach (ICD-10-PCS; principal; 2021-06-23)
DX: O34.219 Maternal care for unspecified type scar from previous cesarean delivery (principal); Z37.0 Single live birth; Z3A.39 39 weeks gestation of pregnancy; Z79.899 Other long term (current) drug therapy
CPT/HCPCS: 0241U; 36415; 59025; 59514; 64488; 76937; 76942; 80307; 81001; 85025; 85027; 85610; 85730; 86850; 86900; 86901; 87086; 87340; 94799; G0378; J1100; J1650; J1885; J2274; J2370; J2405; J2590; L0625; A9270-GY

== ENCOUNTER 2023-09-08 05:03 | Inpatient (IN) | payer OTHER ==
[2023-09-08] MEDS: Lactated Ringers 1,000 ML IV SCH (05:42)
[2023-09-08 06:31] LABS: Hemoglobin 11.1 g/dL (12.0-16.0); Mean Cell Volume 83.3 fL (78-100); Mean Corpuscular Hemoglobin 27.2 pg (26-32); Mean Corpuscular Hgb Concent. 32.6 g/dL (32-36); Mean Platelet Volume 10.9 fL (7.5-11.0); Platelet Count 144 x10^3/uL (150-450); Red Blood Count 4.08 x10^6/uL (4.1-5.4); Red Cell Distribution Width 15.9 % (11.5-14.0); White Blood Count 7.7 x10^3/uL (4.0-10.5)
[2023-09-08 06:41] LABS: Appearance Clear (Clear); Bacteria None Seen /HPF (None Seen); Bilirubin Negative (Negative); Blood Negative (Negative); Epithelial Cells Rare /HPF (None Seen); Glucose, Urine Negative (Negative); Hyaline Casts NONE SEEN /LPF (0-2); Ketones 15 (Negative); Leukocyte Esterase Negative (Negative); Nitrite Negative (Negative); Protein,Urine Dip Negative (Negative); RBC 0-2 /HPF (0-5); WBC 0-2 /HPF (0-5)
[2023-09-08 06:46] LABS: ADD URINE CULTURE? NO (NO)
[2023-09-08 06:48] LABS: INR 0.92 (0.8-3.0); PROTIME 10.1 SECONDS (9.4-12.5); PTT 27.1 SECONDS (25.1-36.5)
[2023-09-08] MEDS: Pepcid 20 MG VIAL IV SCH (06:54)
[2023-09-08] MEDS: Reglan 10 MG/2 ML IV SCH (06:54)
[2023-09-08] MEDS: SOD CITRATE-CITRIC ACID SOLN PO SCH (06:54)
[2023-09-08] MEDS ORDERED: CLINDAMYCIN-D5W 900 MG/50 ML*** 900 MG/50 ML BAG IV SCH (07:00)
[2023-09-08 07:05] LABS: Amphetamine,Urine NEGATIVE (NEGATIVE); Barbiturate,Urine NEGATIVE (NEGATIVE); Benzodiazepine,Urine NEGATIVE (NEGATIVE); Cocaine,Urine NEGATIVE (NEGATIVE); Methadone,Urine NEGATIVE (NEGATIVE); Opiate,Urine NEGATIVE (NEGATIVE); PCP,Urine NEGATIVE (NEGATIVE); THC,Urine NEGATIVE (NEGATIVE)
[2023-09-08 07:17] LABS: ABO TYPING A; Antibody Screen NEGATIVE (NEGATIVE); RH TYPING NEGATIVE
[2023-09-08] MEDS ORDERED: SUBLIMAZE 100 MCG/2 ML ONE (07:49)
[2023-09-08] MEDS ORDERED: Zofran 4 MG/2 ML VIAL ONE (08:26)
[2023-09-08] MEDS ORDERED: Ephedrine Sulfate 50 MG/ML ONE (08:52)
[2023-09-08] MEDS ORDERED: Pitocin 10 UNITS/ML ONE (08:52)
[2023-09-08] MEDS ORDERED: PHENYLEPHRINE HCL ONE (08:52)
[2023-09-08] MEDS ORDERED: Naropin 0.5% 30 ML VIAL ONE (08:59)
[2023-09-08] MEDS ORDERED: Decadron 4 MG INJ ONE (09:00)
[2023-09-08] MEDS ORDERED: TORAdol 30 mg Injection ONE (09:11)
[2023-09-08] MEDS ORDERED: Nubain 10 MG/ML IV PRN (10:00)
[2023-09-08] MEDS ORDERED: CORTISONE 1% CREAM TP PRN (10:00)
[2023-09-08] MEDS ORDERED: HOLD NARCOTIC ANALGESICS AND SEDATIVES X24 HR MC PRN (10:00)
[2023-09-08] MEDS ORDERED: Narcan 0.4 MG/ML IV PRN (10:00)
[2023-09-08] MEDS ORDERED: Anucort-HC SUPPOSITORY PR PRN (10:00)
[2023-09-08] MEDS ORDERED: TYLENOL EXTRA STRENGTH 500 MG PO PRN (10:00)
[2023-09-08] MEDS ORDERED: Zofran 4 MG/2 ML VIAL IV PRN (10:00)
[2023-09-08] MEDS ORDERED: Dulcolax 10 MG SUPP PR PRN (10:00)
[2023-09-08] MEDS ORDERED: BENADRYL 50 MG/ML IV PRN (10:00)
[2023-09-08] MEDS ORDERED: DEMEROL 50 MG IV PRN (10:00)
[2023-09-08] MEDS ORDERED: CLARITIN 10 MG PO PRN (10:00)
[2023-09-08 10:21] LABS: Appearance Clear (Clear); Bacteria None Seen /HPF (None Seen); Bilirubin Negative (Negative); Blood NHT (Negative); Epithelial Cells Rare /HPF (None Seen); Glucose, Urine Negative (Negative); Hyaline Casts NONE SEEN /LPF (0-2); Ketones 15 (Negative); Leukocyte Esterase Negative (Negative); Nitrite Negative (Negative); Ph 7.5 (4.6-8.0); Protein,Urine Dip Negative (Negative); Specific Gravity 1.015 (1.005-1.030)
[2023-09-08] MEDS: Dextrose 5%-Lr IV Solution 1000 ML 1,000 ML IV SCH ×2 (14:21→22:38)
[2023-09-08] MEDS: PERCOCET TABLET 5/325MG PO PRN (15:15)
[2023-09-08] MEDS: CLINDAMYCIN-D5W 900 MG/50 ML*** 900 MG/50 ML BAG IV ONE ×2 (16:15→22:24)
[2023-09-08] MEDS: MOTRIN 400 MG PO PRN (20:38)
[2023-09-08] MEDS: FERREX 150 PO SCH (20:39)
[2023-09-08] MEDS: Docusate Sodium 100 MG PO SCH (20:39)
[2023-09-08] MEDS: LANSINOH 40 GM TOP PRN (20:40)
[2023-09-08] MEDS: ENOXAPARIN SODIUM SQ ONE (22:22)
[2023-09-08] MEDS: Rhogam Plus 300 MCG IM ONE (22:50)
[2023-09-09 06:08] LABS: Absolute Neutrophil Ct (ANC) 7.28 x10^3/uL (1.4-6.9); BASOPHIL % 0.1 % (0.0-0.4); Basophil (Absolute #) 0.01 x10^3/uL (0-0.4); Eosinophil % 0.5 % (0.00-5.0); Eosinophil (Absolute #) 0.05 x10^3/uL (0-0.5); Hematocrit 33.3 % (35-47); Hemoglobin 10.4 g/dL (12.0-16.0); IMMATURE GRAN # 0.03 x10^3u/L (0.00-0.03); IMMATURE GRAN % 0.3 % (0.00-0.4); Lymphocyte (Absolute #) 2.15 x10^3/uL (1.0-4.6); Lymphocytes % 21.3 % (24.0-44.0); Mean Cell Volume 84.1 fL (78-100); Mean Corpuscular Hemoglobin 26.3 pg (26-32); Mean Corpuscular Hgb Concent. 31.2 g/dL (32-36); Mean Platelet Volume 11.6 fL (7.5-11.0); Monocyte (Absolute #) 0.58 x10^3/uL (0.0-1.3); Monocytes % 5.7 % (0.0-12.0); Neutrophil % 72.1 % (36.0-66.0); Platelet Count 155 x10^3/uL (150-450); Red Blood Count 3.96 x10^6/uL (4.1-5.4); Red Cell Distribution Width 15.9 % (11.5-14.0); White Blood Count 10.1 x10^3/uL (4.0-10.5)
--- NOTE | 2023-09-09 09:25 | PCM.NOTE ---
Date and Time: 09/09/23921 Subjective Assessment: pod 1 sp csection pt resting in bed and doing well able to ambulate and tolerate diet. vss afebrile abd; soft incision c/d/intact uterus; firm lochia; mild hgb; 10 a/p sp csection pod 1 anticipate discharge home tomorrow Objective Data Vital Signs: Vital Signs - 24 hr Temp Pulse Resp BP Pulse Ox 09/09/23 05:19 97.9 F 63 18 107/62 98 09/09/23 01:32 97.8 F 71 16 116/66 97 09/08/23 21:25 98.2 F 67 18 120/60 98 09/08/23 17:00 97 09/08/23 15:00 99 09/08/23 14:00 95 09/08/23 13:00 97.4 F 72 20 116/62 99 09/08/23 12:00 100 09/08/23 11:25 98 09/08/23 11:00 66 18 105/56 98 09/08/23 10:30 72 20 111/75 96 09/08/23 10:11 96 09/08/23 10:10 74 20 97 09/08/23 10:00 95 Pain Assessment - Last Documented Pain Intensity 3 Pain Scale Used 0-10 Pain Scale Intake and Output: Intake & Output 09/06/23 09/07/23 09/08/23 09/09/23 11:59 11:59 11:59 11:59 Intake Total 0 1800 Output Total 200 2500 Balance -200 -700 Weight 110.223 kg Lab Results: Lab Results-Last 24 Hours 09/08/23 09/08/23 09/09/23 Range/Units 08:27 10:24 05:18 WBC 10.1 (4.0-10.5) x10^3/uL RBC 3.96 L (4.1-5.4) x10^6/uL Hgb 10.4 L (12.0-16.0) g/dL Hct 33.3 L (35-47) % MCV 84.1 (78-100) fL MCH 26.3 (26-32) pg MCHC 31.2 L (32-36) g/dL RDW 15.9 H (11.5-14.0) % Plt Count 155 (150-450) x10^3/uL MPV 11.6 H (7.5-11.0) fL Gran % 72.1 H (36.0-66.0) % Immature Gran % (Auto) 0.3 (0.00-0.4) % Nucleat RBC Rel Count 0.0 (0.00-0.1) % Eos # (Auto) 0.05 (0-0.5) x10^3/uL Immature Gran # (Auto) 0.03 (0.00-0.03) x10^3u/L Absolute Lymphs (auto) 2.15 (1.0-4.6) x10^3/uL Absolute Monos (auto) 0.58 (0.0-1.3) x10^3/uL Absolute Nucleated RBC 0.00 (0.00-0.01) x10^3u/L Lymphocytes % 21.3 L (24.0-44.0) % Monocytes % 5.7 (0.0-12.0) % Eosinophils % 0.5 (0.00-5.0) % Basophils % 0.1 (0.0-0.4) % Absolute Granulocytes 7.28 H (1.4-6.9) x10^3/uL Basophils # 0.01 (0-0.4) x10^3/uL Urine Color Yellow (Yellow) Urine Appearance Clear (Clear) Urine pH 7.5 (4.6-8.0) Ur Specific [place] 1.015 (1.005-1.030) Urine Protein Negative (Negative) Urine Glucose (UA) Negative (Negative) mg/dL Urine Ketones 15 A (Negative) Urine Blood NHT (Negative) Urine Nitrite Negative (Negative) Urine Bilirubin Negative (Negative) Urine Urobilinogen 1.0 A (0.2) mg/dL Ur Leukocyte Esterase Negative (Negative) U Hyaline Cast (Auto) NONE SEEN (0-2) /LPF Urine Microscopic RBC 6-10 A (0-5) /HPF Urine Microscopic WBC 3-5 (0-5) /HPF Ur Epithelial Cells Rare (None Seen) /HPF Urine Bacteria None Seen (None Seen) /HPF Screen SEE SEPARATE REPORT Assessment/Plan (1) Status post repeat low transverse section Current Visit: No Status: Acute Code(s): Z98.891 - HISTORY OF UTERINE SCAR FROM PREVIOUS SURGERY
[2023-09-09] MEDS: Mylicon 80MG PO PRN (09:28)
[2023-09-09] MEDS: ENOXAPARIN SODIUM SQ ONE (09:28)
[2023-09-09] MEDS: NORCO 5/325 MG PO PRN (09:38)
[2023-09-09] MEDS ORDERED: Diflucan 100 MG PO ONE (10:41)
[2023-09-09] MEDS: DIFLUCAN PO ONE ×2 (13:05→15:44)
[2023-09-09] MEDS: Rhogam Plus 300 MCG IM ONE (13:07)
[2023-09-09 15:53] VITALS: O2SAT 98
[2023-09-10 05:28] VITALS: RESP 18
[2023-09-10 08:02] VITALS: BP 125/60; PULSE 66; TEMP 98.1
--- NOTE | 2023-09-10 09:44 | PCM.DCORD ---
- Discharge Disposition: Home, Self-Care Condition: Stable Prescriptions: New Hydrocodone/Acetaminophen [Hydrocodone-Acetamin 5-325 mg] 1 tab PO Q6HPRN PRN #20 tablet MDD 4 PRN Reason: Pain No Action Pnv No.95/Ferrous Fum/Folic AC [ Caplet] 1 each PO DAILY Metformin HCl 500 mg [Glucophage 500 MG] 500 mg PO DAILY Hydrocodone/Acetaminophen [Hydrocodone-Acetamin 5-325 mg] 1 each PO Q6HPRN PRN #20 tablet MDD 4 PRN Reason: Moderate To Severe Pain Additional Instructions: norco 5/325 1 tab po q6hr prn #20 sent to Jun Malin on behalf of Dr Cee Follow up with: ISMAEL CEE DO [Primary Care Provider] -
--- NOTE | 2023-09-10 10:08 | PCM.NOTE ---
Date and Time: 09/10/23 1007 Subjective Assessment: pod 2 sp csection pt resting in bed and doing well able to ambulate and tolerate diet. vss afebrile abd; soft incision c/d/intact uterus; intact ext; no clubbing cyanosis or edema a/p sp csection pod 2 dc home today should fu in office in 2 wk Objective Data Vital Signs: Vital Signs - 24 hr Temp Pulse Resp BP Pulse Ox 09/10/23 07:50 98.1 F 66 18 125/60 98 09/10/23 04:00 97.8 F 77 18 131/74 98 09/09/23 22:46 98.5 F 64 20 124/64 98 09/09/23 15:20 98.3 F 76 20 120/71 98 Pain Assessment - Last Documented Pain Intensity [Lower Anterior 4 ] Pain Intensity 3 Pain Scale Used 0-10 Pain Scale Intake and Output: Intake & Output 09/07/23 09/08/23 09/09/23 09/10/23 11:59 11:59 11:59 11:59 Intake Total 0 1800 Output Total 200 2500 Balance -200 -700 Weight 110.223 kg Assessment/Plan (1) Status post repeat low transverse section Current Visit: No Status: Acute Code(s): Z98.891 - HISTORY OF UTERINE SCAR FROM PREVIOUS SURGERY
--- NOTE | 2023-09-10 10:12 | PCM.DS ---
Discharge Summary Date of Admission: 09/08/23 05:03 Admitting Physician: ISMAEL CEE DO Consults: Consults on Case 09/08/23 12:00 Notify Anesthesia Provider PRN 09/08/23 13:04 Navigation ONCE Primary Care Provider: ISMAEL CEE DO Allergies Allergies Penicillins Allergy (Verified 06/23/21 04:47) as a child,unknown reaction Hospital Summary - Hospital Course Hospital Course: pt admitted on september 07 for repeat csection at 39 wks gestation. hx of two previous csection and at this time desires tubal sterilization with her csection for which was done. pt underwent csection with tubal sterilization without complication on september 07 and during postop period did well with hgb at 10 postop day 1. pt able to ambulate and tolerate diet, incision c/d/intact/. pt at this time stable for discharge and was advised to fu in office in 2 wks for postop check. all questions answered to her satisfaction and rx of percocet was sent by dr ramirez. - Vitals & Intake/Output Vital Signs: Vital Signs Temperature 98.1 F 09/10/23 07:50 Pulse Rate 66 09/10/23 07:50 Respiratory Rate 18 09/10/23 07:50 Blood Pressure 125/60 09/10/23 07:50 O2 Sat by Pulse Oximetry 98 09/10/23 07:50 Intake & Output: Intake & Output 09/07/23 09/08/23 09/09/23 09/10/23 11:59 11:59 11:59 11:59 Intake Total 0 1800 Output Total 200 2500 Balance -200 -700 Weight 110.223 kg - Lab Result Diagrams: 09/09/23 05:18 Micro Results-Entire Visit: Microbiology 09/08/23 08:27 Urine Culture - Final Urine, Catheterized NO GROWTH - Procedures and Test Procedures and Tests throughout Hospitalization: Therapy Orders & Screens 09/08/23 08:50 Standby ROUTINE Comment: Diagnosis: IUP Final Diagnosis/Problem List - Final Discharge Diagnosis/Problem (1) Status post repeat low transverse section Current Visit: No Status: Acute Code(s): Z98.891 - HISTORY OF UTERINE SCAR FROM PREVIOUS SURGERY - Discharge Disposition: Home, Self-Care Condition: Stable Prescriptions: New Hydrocodone/Acetaminophen [Hydrocodone-Acetamin 5-325 mg] 1 tab PO Q6HPRN PRN #20 tablet MDD 4 PRN Reason: Pain No Action Pnv No.95/Ferrous Fum/Folic AC [ Caplet] 1 each PO DAILY Metformin HCl 500 mg [Glucophage 500 MG] 500 mg PO DAILY Hydrocodone/Acetaminophen [Hydrocodone-Acetamin 5-325 mg] 1 each PO Q6HPRN PRN #20 tablet MDD 4 PRN Reason: Moderate To Severe Pain Additional Instructions: norco 5/325 1 tab po q6hr prn #20 sent to [facility] on behalf of Dr Cee Follow up with: ISMAEL CEE DO [Primary Care Provider] - 09/22/23 (should fu in 2 wks advised to keep incision clean and dry with soap and water no driving for 10 days)
--- NOTE | 2023-09-11 14:02 | OP ---
SURGERY DATE/TIME: 09/08/2023 0806 PREOPERATIVE DIAGNOSES: 1) Intrauterine at 39 weeks gestation with previous section x2. 2) Desires tubal sterilization. POSTOPERATIVE DIAGNOSES: 1) Intrauterine at 39 weeks gestation with previous section x2. 2) Desires tubal sterilization. PROCEDURES: 1) Repeat section, low flap transverse uterine incision, Pfannenstiel skin incision. 2) Bilateral tubal sterilization. SURGEON: Carlos Alberto Cee D.O. FOUNTAIN SUPERVISOR: Cheyenne Mccracken, surgical lead. ANESTHESIA: Spinal. QUANTITATIVE BLOOD LOSS: 800 cc. COMPLICATIONS: None. INDICATIONS: The risks, benefits, indications and alternatives of the procedure were reviewed with the patient prior to procedure. The patient understood the risk of infection, bleeding, bowel injury, bladder injury, ureteral injury, pelvic infection, thromboembolic disorder associated with this surgery and desires to have this surgery as possible means to alleviate her current medical condition. DESCRIPTION OF PROCEDURE AND FINDINGS: At this point, the patient is taken to the operating room where her spinal anesthesia was found to adequate. She was then prepared and draped in normal sterile fashion in the dorsal supine position with a leftward tilt. A Pfannenstiel skin incision is made with a scalpel and carried through to the underlying layer of the fascia with a Bovie. The fascia was then incised in the midline and the incision extended laterally with Black scissors. The superior aspect of the fascial incision was then grasped Ross clamps elevated and the underlying rectus muscles dissected off bluntly. Attention is then turned to the inferior aspect of this incision, which in similar fashion was grasped, tented up with Ross clamps and the rectus muscles dissected off bluntly. The rectus muscles were then in the midline and the peritoneum identified, tented up and entered sharply with Metzenbaum scissors. The peritoneal incision was then extended superiorly and inferiorly with good visualization of the bladder. The bladder blade was then inserted and the vesicouterine peritoneum identified, grasped with pickups and entered sharply with Metzenbaum scissors. This incision was then extended laterally and bladder flap created digitally. The bladder blade was then re-inserted and the lower uterine segment excised in transverse fashion with a scalpel. The uterine incision was then extended laterally with bandage scissors. The bladder blade was then removed and the infants head was delivered atraumatically. The nose and mouth were suctioned with bulb suction and the cord clamped and cut. The infant was then handed off to the awaiting nurses. The placenta was then removed manually and the uterus exteriorized and cleared of all clots and debris. The uterine incision was repaired with 1-0 chromic in running locked fashion. A second layer of the same suture was used to obtain excellent hemostasis. At this point, a [place] clamp was used to grasp the fallopian tube approximately 4 cm from the cornual region and a 3 cm segment of the tube was then ligated with free tie of plain gut and excised. Good hemostasis was noted. The same procedure was performed on the contralateral side where a Renae clamp was used and grasped the tube approximately 4 cm from the cornual region and a 3 cm segment of the tube was then ligated with tie of plain gut and excised in a similar fashion. Good hemostasis was noted. From this point, the uterus was then returned to the abdomen. The gutters were cleared of all clots and at this time the peritoneal muscles were closed in interrupted fashion using 2-0 chromic suture. The fascia was re-approximated with 0 Vicryl in a running fashion. The subcutaneous layer was closed with 2-0 Chromic suture and the skin was closed with absorbable kaykay called INSORB. The patient tolerated the procedure well. Sponge, lap, needle and instrument counts were correct x2. The patient was then taken to the recovery room in stable condition. The patient delivered a live baby boy at 0839 hours. 's 9 at 1 minute and 9 at 5 minutes. The weight of the baby was 8 pounds 13 ounces.
== END 2023-09-10 13:20 | disposition home or self-care (01) | DRG 785 ==
LOC: OB 05:03
PROVIDERS: ADMIT Obstetrics & Gynecology; ATTEND Obstetrics & Gynecology
PROC: 10D00Z1 Extraction of Products of Conception, Low, Open Approach (ICD-10-PCS; principal; 2023-09-08)
PROC: 0UB70ZZ Excision of Bilateral Fallopian Tubes, Open Approach (ICD-10-PCS; 2023-09-08)
DX: O34.211 Maternal care for low transverse scar from previous cesarean delivery (principal); Z3A.39 39 weeks gestation of pregnancy; Z37.0 Single live birth; Z30.2 Encounter for sterilization
CPT/HCPCS: 36415; 59426; 62322; 64488; 76937; 76942; 80307; 81001; 81002; 85025; 85027; 85461; 85610; 85730; 86850; 86900; 86901; 87086; 94799; J1100; J1650; J1885; J2371; J2405; J2590; J2790; J2795; J3010; A9270-GY